=== PATIENT | female | born 1985 | race Two or more races ===

== ENCOUNTER 2022-07-01 15:50 | Inpatient (IN) | payer OTHER ==
[~2022-07-01] VITALS: Ht 154.9 cm; Wt 71.2 kg
[2022-07-01] MEDS ORDERED: PRENATAL + DHA1 EAC1 PO (16:33)
== END 2022-07-04 11:51 | disposition home or self-care (01) | DRG 833 ==
LOC: LDR 15:50 → OB/GYN 15:50
PROVIDERS: ADMIT Obstetrics & Gynecology; ATTEND Obstetrics & Gynecology
PROC: BY4FZZZ Ultrasonography of Third Trimester, Single Fetus (ICD-10-PCS; principal; 2022-07-01)
PROC: 4A1HXCZ Monitoring of Products of Conception, Cardiac Rate, External Approach (ICD-10-PCS; 2022-07-01)
DX: O47.03 False labor before 37 completed weeks of gestation, third trimester (principal); Z3A.32 32 weeks gestation of pregnancy; Z20.822 Contact with and (suspected) exposure to COVID-19; O24.410 Gestational diabetes mellitus in pregnancy, diet controlled

== ENCOUNTER 2022-07-08 10:09 | Inpatient (IN) | payer OTHER ==
[~2022-07-08] VITALS: Ht 154.9 cm; Wt 1.8 kg
[~2022-07-08 10:09] MED LIST: PRENATAL + DHA1 EAC1 PO
[2022-07-09] MEDS ORDERED: PRENATAL CAPLE1 EAC1 PO (09:08)
[2022-07-09] MEDS ORDERED: PEPCID AC20 MG PO (09:09)
[2022-07-09] MEDS ORDERED: DICLEGIS DR 101 EACH (10:24)
[2022-07-09] MEDS ORDERED: CONCEPT OB CAP1 EACH (10:24)
== END 2022-07-12 14:34 | disposition home or self-care (01) | DRG 783 ==
LOC: NST 10:09 → OBS/DEL 10:09 → OB/GYN 21:51 → LDR 21:51 → NST 21:51 → OB/GYN 07-09 14:53
PROVIDERS: ADMIT Obstetrics & Gynecology; ATTEND Obstetrics & Gynecology
PROC: 4A1HXCZ Monitoring of Products of Conception, Cardiac Rate, External Approach (ICD-10-PCS; 2022-07-08)
PROC: BY4FZZZ Ultrasonography of Third Trimester, Single Fetus (ICD-10-PCS; 2022-07-08)
PROC: BU4CZZZ Ultrasonography of Uterus and Ovaries (ICD-10-PCS; 2022-07-08)
PROC: 0UB70ZZ Excision of Bilateral Fallopian Tubes, Open Approach (ICD-10-PCS; 2022-07-09)
PROC: 3E0P7VZ Introduction of Hormone into Female Reproductive, Via Natural or Artificial Opening (ICD-10-PCS; 2022-07-09)
PROC: 3E033VJ Introduction of Other Hormone into Peripheral Vein, Percutaneous Approach (ICD-10-PCS; 2022-07-09)
PROC: 10D00Z1 Extraction of Products of Conception, Low, Open Approach (ICD-10-PCS; principal; 2022-07-09 15:00)
DX: O61.0 Failed medical induction of labor (principal); O60.14X0 Preterm labor third trimester with preterm delivery third trimester, not applicable or unspecified; O62.1 Secondary uterine inertia; O26.843 Uterine size-date discrepancy, third trimester; O42.013 Preterm premature rupture of membranes, onset of labor within 24 hours of rupture, third trimester; O36.8130 Decreased fetal movements, third trimester, not applicable or unspecified; Z3A.33 33 weeks gestation of pregnancy; Z30.2 Encounter for sterilization; Z37.0 Single live birth; Z20.822 Contact with and (suspected) exposure to COVID-19